=== PATIENT | female | born 1965 | race African-American/Black ===

== ENCOUNTER 2020-01-28 21:04 | Emergency (ER) | payer OTHER ==
[2020-01-28 21:27] VITALS: TEMP 98.6; BMI 35.5
--- NOTE | 2020-01-28 21:30 | PDOC ---
History of Present Illness - General Chief Complaint: Asthma Stated Complaint: ASTHMA Time Seen by Provider: 01/28/20 21:29 History Source: Patient - History of Present Illness Initial Comments: 01/28/20 21:36 Chief complaint: Asthma Patient 54-year-old female with history of asthma, been hospitalized once, hypertension, pseudoseizures, PTSD who states she has been trying to treat her asthma at home for the last few days. Patient does not have a fever, thinks she might of been febrile yesterday. Patient's been using her inhaler, albuterol and Flovent and "I cannot get it under control". GENERAL/CONSTITUTIONAL: No fever, weakness. dizziness HEAD, EYES, EARS, NOSE AND THROAT: No change in vision. No ear pain or discharge. No sore throat. CARDIOVASCULAR: No chest pain RESPIRATORY: + shortness of breath/cough GASTROINTESTINAL: No pain, nausea, vomiting, diarrhea or constipation GENITOURINARY: No dysuria MUSCULOSKELETAL: No neck or back pain SKIN: No rash NEUROLOGIC: No headache, vertigo, loss of consciousness, or loss of sensation. GENERAL: The patient is awake, alert, and fully oriented, in no acute distress. HEAD: Normal with no signs of trauma. EYES: Pupils equal, round and reactive to light, sclera anicteric, conjunctiva clear. ENT: pharynx: no erythema, no exudate, uvula midline NECK: supple CHEST: Bilateral wheezing, nontender, rr ABD: soft, nontender BACK: no tenderness or signs of injury EXTREMITIES: Normal range of motion, no edema. NEUROLOGICAL: Normal speech, normal gait. SKIN: Warm, Dry Is this a multiple visit Asthma Patient?: No Past History - Past Medical History Allergies/Adverse Reactions: Allergies Allergy/AdvReac Type Severity Reaction Status Date / Time levofloxacin [From Levaquin] Allergy Verified 01/28/20 21:27 Home Medications: Ambulatory Orders Zolpidem Tartrate [Ambien] 10 mg PO HS PRN 01/23/12 Fluoxetine HCl [Prozac -] 20 mg PO DAILY 11/02/12 Clonazepam 1 mg PO DAILY 01/30/14 Albuterol Sulfate Inhaler - [Ventolin Hfa Inhaler -] 2 inh PO Q4H 10/24/16 Hydrochlorothiazide [Hctz -] 12.5 mg PO DAILY 10/24/16 Ibuprofen 800 mg PO TID #30 tablet 11/23/16 Methocarbamol [Robaxin -] 500 mg PO TID #30 tablet 10/24/16 Risperidone 5 mg PO DAILY 10/24/16 Albuterol 0.083% Nebulizer Radha [Ventolin 0.083% Nebulizer Soln -] 1 neb NEB Q4H #30 vial 01/28/20 predniSONE [Deltasone -] 40 mg PO DAILY #8 tablet 01/28/20 Asthma: Yes COPD: No HTN: Yes Psychiatric Problems: Yes (PTSD, MDD, Anxiety) - Immunization History Immunization Up to Date: Yes - Psycho Social/Smoking Cessation Hx Smoking Status: Yes Smoking History: Former smoker Have you smoked in the past 12 months: No Number of Cigarettes Smoked Daily: 0 If you are a former smoker, when did you quit?: > 5 yrs ago Information on smoking cessation initiated: No 'Breaking Loose' booklet given: 09/24/14 Hx Alcohol Use: No Drug/Substance Use Hx: No Substance Use Type: None Hx Substance Use Treatment: No *Physical Exam - Vital Signs Last Vital Signs Temp Pulse Resp BP Pulse Ox 98.6 F 83 23 H 133/73 99 01/28/20 21:24 01/28/20 21:24 01/28/20 21:24 01/28/20 21:24 01/28/20 21:24 Medical Decision Making - Medical Decision Making 01/28/20 21:37 54-year-old female with a history of asthma, has not had an asthma attack in a long time, hypertension, PTSD, pseudoseizures who states that she has been having problems with her asthma for the last few days, been using her inhaler, albuterol and Flovent and not getting better. Patient is not hypoxic or grossly short of breath. She is having a wheezy cough. Patient will get DuoNeb 's, prednisone, will swab for the flu and reassess. 01/28/20 22:35 Patient feeling better, will observe 01/28/20 22:57 Patient states she feels well enough that she wants to go home. We will put her on prednisone for 5 days, flu is negative Discussed issues, findings, results, applicable medications and treatments and follow-up. All these were understood and all questions were answered Discharge - Discharge Information Problems reviewed: Yes Clinical Impression/Diagnosis: Asthma Qualifiers: Asthma severity: unspecified severity Asthma persistence: unspecified Asthma complication type: uncomplicated Qualified Code(s): J45.909 - Unspecified asthma , uncomplicated Condition: Stable Disposition: HOME - Admission No - Additional Discharge Information Prescriptions: Albuterol 0.083% Nebulizer Radha [Ventolin 0.083% Nebulizer Soln -] 1 neb NEB Q4H #30 vial predniSONE [Deltasone -] 40 mg PO DAILY #8 tablet - Follow up/Referral Referrals: Tabitha Kumar MD [Primary Care Provider] - - Patient Discharge Instructions Patient Printed Discharge Instructions: Asthma -- Adult Additional Instructions: Use albuterol inhaler, 2 puffs every 4 hours as needed for wheezing. Take prednisone 40 mg once daily until finished. Return to the ER if fever, shortness of breath or getting sicker. Otherwise follow-up with your doctor in one to 2 days - Post Discharge Activity
[2020-01-28] MEDS ORDERED: predniSONE 20 MG TABLET (UD) PO ONE (21:35)
[2020-01-28] MEDS ORDERED: ALBUTEROL SO4 2.5/IPRATROPIUM 0.5 INH SOL 3 ML VIAL.NEB. NEB ONE (21:41)
[2020-01-28] MEDS ORDERED: predniSONE 20 MG TABLET (UD) ONE (21:41)
[2020-01-28] MEDS: ALBUTEROL SO4 2.5/IPRATROPIUM 0.5 INH SOL 3 ML VIAL.NEB. NEB SCH ×2 (21:52→22:54)
[2020-01-28 23:09] VITALS: BP 141/74; PULSE 76
== END 2020-01-28 23:09 | disposition home or self-care (01) ==
LOC: JERFT 21:04
PROC: 3E0F7GC Introduction of Other Therapeutic Substance into Respiratory Tract, Via Natural or Artificial Opening (ICD-10-PCS; principal; 2020-01-28)
DX: J45.909 Unspecified asthma, uncomplicated (principal); I10 Essential (primary) hypertension; F41.9 Anxiety disorder, unspecified; F32.9 Major depressive disorder, single episode, unspecified; F44.5 Conversion disorder with seizures or convulsions; F43.10 Post-traumatic stress disorder, unspecified
CPT/HCPCS: 87804; 99285-25

== ENCOUNTER 2022-01-14 14:48 | Emergency (ER) | payer OTHER ==
[2022-01-14 14:54] VITALS: BP 145/91; PULSE 71; TEMP 97; BMI 33.6
[2022-01-14] MEDS ORDERED: CYCLOBENZAPRINE HCL 10 MG TABLET (FP) PO ONE (16:20)
[2022-01-14] MEDS ORDERED: LIDOCAINE 5% TOPICAL PATCH TP ONE (16:20)
[2022-01-14] MEDS ORDERED: LIDOCAINE 5% TOPICAL PATCH ONE (16:43)
[2022-01-14] MEDS ORDERED: CYCLOBENZAPRINE HCL 10 MG TABLET (FP) ONE (16:43)
[2022-01-14] MEDS ORDERED: LIDOCAINE PATCH REMOVAL MC SCH (22:00)
== END 2022-01-14 19:29 | disposition home or self-care (01) ==
LOC: JERFT 14:48
DX: M54.50 Low back pain, unspecified (principal)
CPT/HCPCS: 99283-25

== ENCOUNTER 2022-03-07 00:37 | Emergency (ER) | payer OTHER ==
[2022-03-07 01:10] VITALS: TEMP 101.4; BMI 34.7
[2022-03-07] MEDS ORDERED: SODIUM CHLORIDE 0.9% 500 ML INFUS.BAG IV ONE (01:15)
[2022-03-07] MEDS ORDERED: predniSONE 20 MG TABLET (UD) PO ONE (01:15)
[2022-03-07] MEDS ORDERED: ACETAMINOPHEN 1000 MG/100 ML BAG IVPB ONE (01:15)
[2022-03-07] MEDS ORDERED: predniSONE 20 MG TABLET (UD) ONE (01:18)
[2022-03-07] MEDS ORDERED: ACETAMINOPHEN INJECTION 100 ML IVPB ONE (01:18)
[2022-03-07] MEDS ORDERED: methylPREDNISolone NA SUCC 125 MG/2 ML VIAL IVPUSH ONE (01:19)
[2022-03-07] MEDS: ALBUTEROL SO4 2.5/IPRATROPIUM 0.5 INH SOL 3 ML VIAL.NEB. NEB SCH ×3 (01:48→02:24)
[2022-03-07 02:08] LABS: BASO % 0.5 % (0-2.0); EOS % 0.1 % (0-4.5); HEMATOCRIT 43.1 % (32.4-45.2); HEMOGLOBIN 14.6 GM/dL (10.7-15.3); LYMPH % 8.3 % (8-40); MCH 29.7 pg (25.7-33.7); MCHC 33.8 g/dl (32.0-36.0); MEAN CELL VOLUME 87.7 fl (80-96); MEAN PLT VOLUME 8.3 fl (7.5-11.1); MONO % 13.1 % (3.8-10.2); PLATELET COUNT 235 10^3/uL (134-434); RBC 4.91 M/mm3 (3.60-5.2); RDW 13.9 % (11.6-15.6); WHITE BLOOD COUNT 4.3 K/mm3 (4.0-10.0)
[2022-03-07 02:19] LABS: INR 1.23 (0.83-1.09); PROTHROMBIN TIME (PATIENT) 14.2 SEC (9.7-13.0)
[2022-03-07 02:20] LABS: VENOUS BASE EXCESS 1.4 mmol/L (-2-2); VENOUS O2 SATURATION 43.6 % (70-80); VENOUS PCO2 48.8 mmHg (38-52); VENOUS PH 7.369 (7.310-7.410)
[2022-03-07 02:22] LABS: ACTIVATED PTT 31.5 SECONDS (25.2-36.5)
[2022-03-07 02:30] LABS: CHLORIDE 100 mmol/L (98-107); SODIUM 135 mmol/L (136-145)
[2022-03-07 02:33] LABS: CALCIUM 8.6 mg/dL (8.5-10.1)
[2022-03-07 02:34] LABS: ALBUMIN 3.3 g/dl (3.4-5.0); ANION GAP 9 MMOL/L (8-16); BLOOD UREA NITROGEN 7.4 mg/dL (7-18); CO2 26 mmol/L (21-32); GLUCOSE,RANDOM 90 mg/dL (74-106)
[2022-03-07 02:37] LABS: CREATININE 0.9 mg/dL (0.55-1.3); SGOT/AST 21 U/L (15-37); SGPT/ALT 21 U/L (13-61)
[2022-03-07 02:38] LABS: BILIRUBIN,TOTAL 0.6 mg/dL (0.2-1)
[2022-03-07 02:39] LABS: TOT PROT 7.2 g/dl (6.4-8.2)
[2022-03-07 02:40] LABS: ALK PHOS 80 U/L (45-117)
[2022-03-07 03:19] VITALS: BP 122/65; PULSE 112
[2022-03-07 03:32] LABS: PH,URINE 6.5 (5.0-8.0); URINE APPEARANCE CLEAR; URINE BILIRUBIN NEGATIVE (NEGATIVE); URINE COLOR YELLOW; URINE GLUCOSE (UA) NEGATIVE (NEGATIVE); URINE KETONE NEGATIVE (NEGATIVE); URINE LEUK ESTERASE NEGATIVE (NEGATIVE); URINE NITRITE NEGATIVE (NEGATIVE); URINE PROTEIN NEGATIVE (NEGATIVE); URINE UROBILINOGEN 0.2 mg/dL (0.2-1.0)
[2022-03-08 10:13] LABS: SARS-CoV-2 NAA Not Detected (Not Detected)
== END 2022-03-07 06:47 | disposition home or self-care (01) ==
LOC: JER 00:37
PROC: 3E023GC Introduction of Other Therapeutic Substance into Muscle, Percutaneous Approach (ICD-10-PCS; principal; 2022-03-07)
PROC: 3E0F7GC Introduction of Other Therapeutic Substance into Respiratory Tract, Via Natural or Artificial Opening (ICD-10-PCS; 2022-03-07)
DX: J44.1 Chronic obstructive pulmonary disease with (acute) exacerbation (principal)
CPT/HCPCS: 36415; 71045-TC-FY; 80053; 81003; 82553; 82803; 83605; 84484; 85025; 85610; 85730; 86850; 86900; 86901; 87040; 87086; 87804; 87807; 93005; 93010; 99285-25; C9803-CS; U0003; U0005

== ENCOUNTER 2022-07-22 07:30 | Emergency (ER) | payer OTHER ==
[2022-07-22 07:44] VITALS: TEMP 98.2; BMI 37.2
[2022-07-22] MEDS ORDERED: ALBUTEROL SO4 2.5/IPRATROPIUM 0.5 INH SOL 3 ML VIAL.NEB. NEB ONE (08:32)
[2022-07-22] MEDS: ALBUTEROL SO4 2.5/IPRATROPIUM 0.5 INH SOL 3 ML VIAL.NEB. NEB SCH ×4 (08:40→09:29)
[2022-07-22] MEDS ORDERED: predniSONE 20 MG TABLET (UD) PO ONE (08:45)
[2022-07-22] MEDS ORDERED: predniSONE 20 MG TABLET (UD) ONE (08:49)
[2022-07-22 10:08] VITALS: BP 155/81; PULSE 73; RESP 16
== END 2022-07-22 10:09 | disposition home or self-care (01) ==
LOC: JER 07:30
PROC: 3E0F7GC Introduction of Other Therapeutic Substance into Respiratory Tract, Via Natural or Artificial Opening (ICD-10-PCS; principal; 2022-07-22)
DX: J45.901 Unspecified asthma with (acute) exacerbation (principal)
CPT/HCPCS: 0241U-QW; 71046-TC-FY; 93005; 93010; 99285-25